=== PATIENT | female | born 1950 | race Caucasian/White ===

== ENCOUNTER → 2017-06-04 | Outpatient (CLI) | payer MEDICARE | END | disposition home or self-care (01) | LOC: CFH 09:16 | PROVIDERS: ATTEND Internal Medicine | DX: Z12.31 Encounter for screening mammogram for malignant neoplasm of breast (principal); M85.88 Other specified disorders of bone density and structure, other site; E03.9 Hypothyroidism, unspecified | CPT/HCPCS: 77063; 77080; G0202 ==

== ENCOUNTER → 2018-01-03 | Outpatient (CLI) | payer MEDICARE | END | disposition home or self-care (01) | LOC: CFH 15:20 | PROVIDERS: ATTEND Internal Medicine | DX: C73 Malignant neoplasm of thyroid gland (principal); Z85.850 Personal history of malignant neoplasm of thyroid | CPT/HCPCS: 76536 ==

== ENCOUNTER 2019-06-08 12:03 | Outpatient (CLI) | payer MEDICARE | END 2019-06-08 23:59 | disposition home or self-care (01) | LOC: CFH 12:03 | PROVIDERS: ATTEND Internal Medicine | DX: Z12.31 Encounter for screening mammogram for malignant neoplasm of breast (principal); N64.89 Other specified disorders of breast; M85.89 Other specified disorders of bone density and structure, multiple sites | CPT/HCPCS: 77080; 77067 ==

== ENCOUNTER → 2020-05-19 | Outpatient (CLI) | payer MEDICARE | END | disposition home or self-care (01) | LOC: CFH 14:57 | PROVIDERS: ATTEND Internal Medicine Cardiovascular Disease | DX: I08.0 Rheumatic disorders of both mitral and aortic valves (principal); R42 Dizziness and giddiness; E78.2 Mixed hyperlipidemia | CPT/HCPCS: 93306 ==

== ENCOUNTER → 2020-06-09 | Outpatient (CLI) | payer MEDICARE | END | disposition home or self-care (01) | LOC: CFH 09:16 | PROVIDERS: ATTEND Internal Medicine | DX: Z12.31 Encounter for screening mammogram for malignant neoplasm of breast (principal) | CPT/HCPCS: 77067 ==